=== PATIENT | male | born 1940 | race Caucasian/White ===

== ENCOUNTER 2016-10-18 15:20 | Emergency (ER) | payer BC, MEDICARE ==
[2016-10-18 16:05] LABS: Digoxin 1.03 ng/mL (0.8-2.0)
[2016-10-18 16:07] LABS: ALT (SGPT) 7 U/L (8-55); AST (SGOT) 11 U/L (5-34); Albumin 3.5 g/dL (3.4-4.8); Alkaline Phosphatase 76 U/L (40-150); Anion Gap 17 mmol/L (10-20); BUN (Urea Nitrogen) 23 mg/dL (8.4-25.7); Bilirubin, Total 0.6 mg/dL (0.2-1.2); Calc. Creatinine Clearance 0 mL/min (70-130); Calcium 9.8 mg/dL (7.8-10.44); Carbon Dioxide 29 mmol/L (23-31); Chloride 96 mmol/L (98-107); Estimated GFR-MDRD 71; Globulin 3.7 g/dL (2.4-3.5); Glucose 134 mg/dL (83-110); Protein, Total 7.2 g/dL (5.8-8.1); Sodium 137 mmol/L (136-145)
--- NOTE | 2016-10-18 16:08 | RAD ---
SINGLE VIEW OF THE CHEST: Comparison: 03-02-13 History: Dyspnea. FINDINGS: Single view of the chest shows an enlarged but stable cardiomediastinal silhouette. The patient is s tatus post CABG. Opacity seen in the left lower lobe which may represent atelectasis or an infiltrat e. IMPRESSION: Left lower lobe atelectasis versus infiltrate. POS: [facility]
[2016-10-18 16:14] LABS: CKMB 1.3 ng/mL (0-6.6)
[2016-10-18] MEDS ORDERED: Furosemide 20 MG/2 ML VIAL ONE (16:17)
[2016-10-18] MEDS ORDERED: methylPREDNISolone Sod Succ/PF 125 MG/2 ML VIAL ONE (16:17)
[2016-10-18] MEDS ORDERED: Sterile Water 10 ML ONE (16:17)
[2016-10-18 16:51] LABS: INR-International Normal Ratio 1.1; Prothrombin Time 14.3 SEC (12.0-14.7)
[2016-10-18 16:52] LABS: PTT 33.2 SEC (22.9-36.1)
[2016-10-18 16:54] LABS: Hemoglobin 12.4 g/dL (14.0-18.0); Mean Corpuscular HGB CONC 29.9 g/dL (32.0-36.0); Mean Corpuscular Hemoglobin 25.8 pg (27.0-31.0); Mean Corpuscular Volume 86.1 fl (80.0-94.0); Platelet Count 254 thou/uL (130-400); Red Blood Cell (RBC) Count 4.81 mill/uL (4.70-6.10); White Blood Cell (WBC) Count 15.5 thou/uL (4.8-10.8)
[2016-10-18 16:55] LABS: Band 4 % (5-11); Lymphocytes 40 % (21-51); Neutrophil 53 % (42-75)
[2016-10-18 16:56] LABS: Monocytes 3 % (0-10)
[2016-10-18 17:07] LABS: Bilirubin Negative (Negative); Blood, Urine Negative (Negative); Clarity Clear (Clear); Glucose, Urine (Dipstick) Negative (Negative); Leukocyte Negative (Negative); Nitrite Negative (Negative); Protein, Urine (Dipstick) Negative (Neg-Trace); Specific Gravity, Urine 1.015 (1.005-1.030); pH, Urine 5.5 (5.0-9.0)
== END 2016-10-18 16:42 | disposition short-term general hospital (02) ==
LOC: MADERS 15:20
DX: J96.90 Respiratory failure, unspecified, unspecified whether with hypoxia or hypercapnia (principal); I50.9 Heart failure, unspecified; R41.82 Altered mental status, unspecified; J44.9 Chronic obstructive pulmonary disease, unspecified; Z87.891 Personal history of nicotine dependence; Z79.82 Long term (current) use of aspirin; Z79.899 Other long term (current) drug therapy
CPT/HCPCS: 36415; 36416; 51702; 71010; 80053; 80162; 81003; 82553; 83605; 83880; 84484; 85025; 85379; 85610; 85730; 87040; 93005; 96374; 96375; A4216; J1940; J2930